=== PATIENT | male | born 1945 | race Caucasian/White ===

== ENCOUNTER 2023-06-26 09:57 | Inpatient (IN) | payer MEDICARE ==
[~2023-06-26] VITALS: Ht 170.2 cm; Wt 101.5 kg
[2023-06-26] VITALS (10 sets, daily range): BP systolic 109–145; BP diastolic 53–72; PULSE 65–74; RESP 16–18; TEMP 97.7–98.4; O2SAT 70–97
[2023-06-26 10:53] LABS: BASOPHILS % (AUTO) 0.5 % (0-1); EOSINOPHILS # (AUTO) 0.1 X10'3 (0-0.9); EOSINOPHILS % (AUTO) 1.4 % (0-6); HEMATOCRIT 39.5 % (42.0-52.0); HEMOGLOBIN 12.8 g/dl (14.0-17.9); LYMPHOCYTES # (AUTO) 0.9 X10'3 (1.1-4.8); LYMPHOCYTES % (AUTO) 12.4 % (21-51); MEAN CORPUSCULAR HEMOGLOBIN 29.9 PG (27.0-31.0); MEAN CORPUSCULAR HGB CONC 32.5 g/dL (33.0-36.5); MEAN CORPUSCULAR VOLUME 91.9 FL (78-98); MEAN PLATELET VOLUME 7.9 FL (7.4-10.4); MONOCYTES # (AUTO) 0.5 X10'3 (0-0.9); MONOCYTES % (AUTO) 6.3 % (2-12); NEUTROPHILS # (AUTO) 5.9 X10'3 (1.8-7.7); NEUTROPHILS % (AUTO) 79.4 % (42-75); PLATELET COUNT 218 X10'3 (140-440); RED BLOOD COUNT 4.29 X10'6 (4.70-6.10); RED CELL DISTRIBUTION WIDTH 14.1 % (11.5-14.5); WHITE BLOOD COUNT 7.4 X10'3 (4.5-11.0)
[2023-06-26 11:17] LABS: ALANINE AMINOTRANSFERASE 39 U/L (12-78); ALBUMIN 3.6 G/DL (3.4-5.0); ALBUMIN/GLOBULIN RATIO 0.8 (1.1-1.5); ALKALINE PHOSPHATASE 87 IU/L (46-116); ANION GAP 13 (8-16); ASPARTATE AMINO TRANSFERASE 56 U/L (10-37); BILIRUBIN,TOTAL 0.5 MG/DL (0.1-1.0); BLOOD UREA NITROGEN 33 MG/DL (7-18); BUN/CREATININE RATIO 14.7 (10.0-20.0); CALCIUM 9.8 MG/DL (8.5-10.1); CHLORIDE 97 MMOL/L (99-107); CREATININE 2.25 MG/DL (0.60-1.10); GLUCOSE 384 MG/DL (70-104); SODIUM 132 MMOL/L (135-145); TOTAL PROTEIN 8.2 G/DL (6.4-8.2); eCRCL 26 ML/MIN; eGFR 28 ML/MIN
[2023-06-26 11:25] LABS: AMYLASE 60 U/L (25-115); PRO BRAIN NATRIURETIC PEPTIDE 529 PG/ML (0-450)
[2023-06-26 11:47] LABS: BILIRUBIN,URINE NEGATIVE (Neg); CLARITY,URINE CLEAR (Clear); COLOR,URINE YELLOW (Yellow); GLUCOSE, URINE >=1000 mg/dl (Neg); KETONES,URINE NEGATIVE (Neg); LEUKOCYTE ESTERASE ,URINE NEGATIVE (Neg); NITRITES, URINE NEGATIVE (Neg); OCCULT BLOOD,URINE TRACE-INTACT (Neg); PROTEIN,URINE TRACE mg/dl (Neg); UROBILINOGEN,URINE 0.2 E.U/dL (0.2-1.0)
[2023-06-26] MEDS ORDERED: aspirin 325mg tablet PO ONE ×2 (11:55→13:45)
[2023-06-26 11:57] LABS: UA COLLECTION TYPE NON-SPECIFIED
[2023-06-26 11:58] LABS: BACTERIA,URINE NONE SEEN /HPF (Neg); MUCUS STRANDS NONE SEEN /LPF (Neg); RBC,URINE 0-2 /HPF (0-2); SQUAMOUS EPITHELIAL CELL,UR FEW /LPF (FEW); WBC,URINE 0-4 /HPF (0-4)
[2023-06-26] MEDS ORDERED: heparin 10,000 units/1 ML INJ IV ONE (13:40)
[2023-06-26] MEDS ORDERED: heparin 10,000 units/1 ML INJ IV PRN (13:40)
[2023-06-26] MEDS ORDERED: heparin 25,000 UNIT/250ml bag 250 ML IV PRN (13:40)
[2023-06-26] MEDS ORDERED: clopidogrel 300mg tablet PO ONE (13:45)
[2023-06-26 14:00] LABS: BASOPHILS % (AUTO) 0.5 % (0-1); EOSINOPHILS # (AUTO) 0.1 X10'3 (0-0.9); HEMATOCRIT 38.9 % (42.0-52.0); HEMOGLOBIN 12.8 g/dl (14.0-17.9); LYMPHOCYTES % (AUTO) 11.8 % (21-51); MEAN CORPUSCULAR HEMOGLOBIN 30.4 PG (27.0-31.0); MEAN CORPUSCULAR VOLUME 92.2 FL (78-98); MEAN PLATELET VOLUME 7.8 FL (7.4-10.4); MONOCYTES # (AUTO) 0.6 X10'3 (0-0.9); MONOCYTES % (AUTO) 7.2 % (2-12); NEUTROPHILS # (AUTO) 6.8 X10'3 (1.8-7.7); NEUTROPHILS % (AUTO) 79.5 % (42-75); PLATELET COUNT 213 X10'3 (140-440); RED BLOOD COUNT 4.21 X10'6 (4.70-6.10); RED CELL DISTRIBUTION WIDTH 14.8 % (11.5-14.5); WHITE BLOOD COUNT 8.5 X10'3 (4.5-11.0)
[2023-06-26] MEDS: normal saline 1000ml 1,000 ML IV SCH ×4 (14:00→23:45)
[2023-06-26 14:13] LABS: APTT 22 SECONDS (22-32); PROTHROMBIN TIME 10.3 SECONDS (9.0-12.0)
[2023-06-26] MEDS ORDERED: fentaNYL/PF 50MCG/1 ML 2ML syringe ONE (14:22)
[2023-06-26] MEDS ORDERED: midazolam 1 mg/ML 2ml injection ONE (14:22)
[2023-06-26] MEDS ORDERED: heparin 1,000unit/ml 10ml vial 0 ML ONE (14:23)
[2023-06-26] MEDS ORDERED: iohexol 350MG/ML 100ml bottle IV ONE (14:23)
[2023-06-26] MEDS ORDERED: LIDOcaine 1% (10mg/ml)w/preservative inj. 20ml MDV ONE (14:23)
[2023-06-26] MEDS ORDERED: iohexol 350 MG/ML 50ML vial IV ONE (14:40)
--- NOTE | 2023-06-26 15:40 | NUR ---
pt arrived from [facility] to room #1328A, recd. report from ANABELL Dalton, pt R comfort beaulieu CDI, pt VSS and pt denies any pain at this time, pt will be going to Tele once we have a bed for pt.
[2023-06-26] MEDS ORDERED: potassium Cl 40MEQ/1/2NS 520ml 520 ML IV PRN (16:05)
[2023-06-26] MEDS ORDERED: acetaminophen 325mg tablet PO PRN (16:05)
[2023-06-26] MEDS ORDERED: magnesium 4gm in 100ml NS 100 ML IV PRN (16:05)
[2023-06-26] MEDS ORDERED: magnesium 2GM in 50ml NS 50 ML IV PRN (16:05)
[2023-06-26] MEDS ORDERED: magnesium Cl slow-release 64mg tablet PO PRN (16:05)
[2023-06-26] MEDS ORDERED: magnesium hydroxide 30ml (MOM) UD suspension PO PRN (16:05)
[2023-06-26] MEDS ORDERED: potassium Cl 20 mEq SR tablet PO PRN ×2 (16:05)
[2023-06-26] MEDS ORDERED: mag hydrox/Alum hydrox/simeth 30ml oral suspension PO PRN (16:05)
[2023-06-26] MEDS ORDERED: ondansetron/PF 4mg/2ml inj IV PRN ×2 (16:05)
[2023-06-26] MEDS ORDERED: HYDROcodone/acetaminophen 5mg/325mg tablet PO PRN (16:10)
[2023-06-26] MEDS ORDERED: glucagon, human recombinant 1mg kit SUBCUT PRN (16:10)
[2023-06-26] MEDS ORDERED: dextrose 50%-water 50ml dispensing syringe IV PRN ×2 (16:10)
[2023-06-26] MEDS ORDERED: MESSAGE TO PHARMACY PO ONE (16:10)
[2023-06-26] MEDS ORDERED: HYDROcodone/acetaminophen 10/325mg tab PO PRN (16:10)
[2023-06-26] MEDS ORDERED: OXAZEpam 15mg capsule PO PRN (16:10)
[2023-06-26] MEDS ORDERED: DEXTROSE 15 GM of carb/4 tabs (each vial/BOTTLE has 4 tablets) PO PRN ×2 (16:10)
[2023-06-26] MEDS ORDERED: proCHLORperazine 10 MG/2 ml inj IV PRN (16:10)
[2023-06-26] MEDS: clopidogrel 75mg tablet PO SCH (16:28)
--- NOTE | 2023-06-26 16:30 | NUR ---
Problems reprioritized. Patient report given, questions answered & plan of care reviewed with ANABELL Sim, I will be taking pt to room 3017Q.
[2023-06-26 16:38] LABS: HEMOGLOBIN A1C 11.4 % (4.5-6.2)
--- NOTE | 2023-06-26 16:40 | NUR ---
pt in room #10981K, VSS and pt denies any pain at this time, pt's R groin dsg CDI, all pt belongings transferred with pt. ANABELL Sim and ANABELL Fagan at pt's bedside.
[2023-06-26] MEDS ORDERED: LISI1TAB51 PO (17:18)
[2023-06-26] MEDS ORDERED: CARV6.2553 PO (17:18)
[2023-06-26] MEDS ORDERED: ATOR40TA72 PO (17:18)
[2023-06-26] MEDS ORDERED: GLIP10TA11 PO (17:18)
[2023-06-26] MEDS ORDERED: LEVO25TA7 PO (17:18)
[2023-06-26] MEDS ORDERED: ALLO100T PO (17:18)
--- NOTE | 2023-06-26 18:53 | NUR ---
Problems reprioritized. Patient report given, questions answered & plan of care reviewed with hSeryl HUNG, patient stable at transfer of care.
[2023-06-26] MEDS: insulin Lispro (HumaLOG) vial - multi-dose SQ SCH ×2 (19:23→21:23)
[2023-06-26] MEDS: docusate sod 100mg capsule PO SCH (19:29)
[2023-06-26] MEDS: K and/or MAG REPLACEMENT MC SCH (19:56)
[2023-06-26] MEDS: insulin glargine (Lantus) pen - multi-dose SQ SCH (21:20)
[2023-06-27 02:00] VITALS: BP 122/60; PULSE 80; RESP 18; TEMP 98.4; O2SAT 95
[2023-06-27 06:00] VITALS: BP 133/71; PULSE 79; RESP 18; TEMP 98.4; O2SAT 94
--- NOTE | 2023-06-27 06:30 | NUR ---
Patient in room PCU 3013. I have received report from Sheryl HUNG and had the opportunity to ask questions and assume patient care.
--- NOTE | 2023-06-27 06:43 | NUR ---
Patient report given, questions answered & plan of care reviewed with ANABELL Saucedo
[2023-06-27 06:55] LABS: BASOPHILS % (AUTO) 0.7 % (0-1); EOSINOPHILS # (AUTO) 0.1 X10'3 (0-0.9); EOSINOPHILS % (AUTO) 1.7 % (0-6); HEMATOCRIT 34.8 % (42.0-52.0); HEMOGLOBIN 11.8 g/dl (14.0-17.9); LYMPHOCYTES # (AUTO) 0.8 X10'3 (1.1-4.8); LYMPHOCYTES % (AUTO) 17.1 % (21-51); MEAN CORPUSCULAR HGB CONC 33.8 g/dL (33.0-36.5); MEAN CORPUSCULAR VOLUME 91.6 FL (78-98); MONOCYTES # (AUTO) 0.4 X10'3 (0-0.9); MONOCYTES % (AUTO) 9.1 % (2-12); NEUTROPHILS # (AUTO) 3.3 X10'3 (1.8-7.7); NEUTROPHILS % (AUTO) 71.4 % (42-75); PLATELET COUNT 175 X10'3 (140-440); RED CELL DISTRIBUTION WIDTH 14.5 % (11.5-14.5); WHITE BLOOD COUNT 4.6 X10'3 (4.5-11.0)
[2023-06-27 07:15] LABS: ANION GAP 9 (8-16); BLOOD UREA NITROGEN 23 MG/DL (7-18); BUN/CREATININE RATIO 14.6 (10.0-20.0); CALCIUM 9.3 MG/DL (8.5-10.1); CHLORIDE 104 MMOL/L (99-107); CREATININE 1.58 MG/DL (0.60-1.10); GLUCOSE 228 MG/DL (70-104); MAGNESIUM 1.8 MG/DL (1.5-2.4); POTASSIUM 3.7 MMOL/L (3.5-5.1); SODIUM 136 MMOL/L (135-145); TOTAL CARBON DIOXIDE 23.2 MMOL/L (24-32); eCRCL 36 ML/MIN; eGFR 43 ML/MIN
[2023-06-27] MEDS: K and/or MAG REPLACEMENT MC SCH ×2 (08:00→19:54)
[2023-06-27] MEDS ORDERED: clopidogrel 75mg tablet PO SCH (08:00)
[2023-06-27] MEDS: docusate sod 100mg capsule PO SCH ×2 (09:13→20:00)
[2023-06-27] MEDS: aspirin 81mg, enteric-coated 1 TAB TABLET.DR PO SCH (09:13)
[2023-06-27] MEDS: clopidogrel 75mg tablet PO SCH (09:13)
[2023-06-27] MEDS: insulin Lispro (HumaLOG) vial - multi-dose SQ SCH ×4 (09:25→21:56)
[2023-06-27] MEDS: normal saline 1000ml 1,000 ML IV SCH ×2 (09:45→22:05)
--- NOTE | 2023-06-27 14:19 | NUR ---
PER TELEPHONE CONVERSATION WITH DR LYNCH IT IS OK TO DC PATIENT TO HOME
--- NOTE | 2023-06-27 14:24 | NUR ---
Page Sent TO DR CUETO promotional table spacer PAGER ID: [phone] MESSAGE: [id number] RIVERO. PER TELEPHONE CONVERSATION WITH DR LYNCH PATIENT IS OK TO DISCHARGE HOME. DR CASTAÑEDA DID NOT THINK AFTAB WAS SURGICAL CANDIDATE. [email or web address]@[phone] (154 character message out of a maximum of 240)
[2023-06-27 15:00] VITALS: BP 113/58; PULSE 85; RESP 16; TEMP 98.3; O2SAT 95
--- NOTE | 2023-06-27 16:32 | NUR ---
PER TELEPHONE CONVERSATION WITH DR LYNCH HE IS NOT GOING TO REPEAT PCI AND STENT AT THIS TIME.
--- NOTE | 2023-06-27 16:32 | NUR ---
Page Sent promotional table spacer PAGER ID: [phone] MESSAGE: [id number] MAT. PER DR CASTAÑEDA PT IS NOT A SURGICAL CANDIDATE. HE RECOMMENDS PCI. DR LYNCH IS NOT GOING TO DO THAT AND HE WOULD LIKE US TO SEND HIM BACK TO WHERE HE CAME FROM. KIMBER @[phone] ([phone] character message out of a maximum of 240)
--- NOTE | 2023-06-27 17:42 | NUR ---
Diabetes consult: Pt presents with an A1c of 11.4% this admit. Pt and Pt's seen at bedside for written/verbal diabetes nutrition education. Pt states he sees his primary doctor for diabetes management every 4 months and takes his medication as prescribes however he has been on the road traveling with his for the past few months. Pt states his prior A1c was 7.4% which was appropriate for his age and suspects it has gone up due to traveling and eating out for most meals. Pt and were eager to discharge and go back to [place] where he will soon see his PCP. RD contact also provided and encouraged pt/SO to reach out for any nutrition questions or concerns. Addendum: 06/27/23 at [address] Amended: Links added.
[2023-06-27 20:00] VITALS: BP 102/45; PULSE 72; RESP 23; O2SAT 94
[2023-06-27] MEDS: heparin, porcine 5000 units/ml vial SQ SCH (20:00)
[2023-06-27] MEDS: carvedilol 6.25mg tablet PO SCH (20:00)
[2023-06-27 21:00] VITALS: BP 100/48
[2023-06-27 22:00] VITALS: BP 98/45; PULSE 65; RESP 20; TEMP 97.6; O2SAT 94
[2023-06-27] MEDS: insulin glargine (Lantus) pen - multi-dose SQ SCH (22:00)
[2023-06-28] VITALS (13 sets, daily range): BP systolic 111–151; BP diastolic 57–73; PULSE 68–91; RESP 13–22; TEMP 97–98.9; O2SAT 95–100
[2023-06-28] MEDS: normal saline 1000ml 1,000 ML IV SCH ×6 (00:10→23:25)
--- NOTE | 2023-06-28 06:45 | NUR ---
Patient report given, questions answered & plan of care reviewed with ANABELL Saucedo
[2023-06-28 06:46] LABS: BASOPHILS % (AUTO) 0.6 % (0-1); EOSINOPHILS # (AUTO) 0.1 X10'3 (0-0.9); EOSINOPHILS % (AUTO) 1.6 % (0-6); HEMATOCRIT 34.4 % (42.0-52.0); HEMOGLOBIN 11.4 g/dl (14.0-17.9); LYMPHOCYTES # (AUTO) 0.9 X10'3 (1.1-4.8); LYMPHOCYTES % (AUTO) 22.7 % (21-51); MEAN CORPUSCULAR HEMOGLOBIN 30.5 PG (27.0-31.0); MEAN CORPUSCULAR VOLUME 92.5 FL (78-98); MONOCYTES # (AUTO) 0.4 X10'3 (0-0.9); MONOCYTES % (AUTO) 10.7 % (2-12); NEUTROPHILS # (AUTO) 2.6 X10'3 (1.8-7.7); NEUTROPHILS % (AUTO) 64.4 % (42-75); PLATELET COUNT 160 X10'3 (140-440); RED BLOOD COUNT 3.72 X10'6 (4.70-6.10); RED CELL DISTRIBUTION WIDTH 14.5 % (11.5-14.5); WHITE BLOOD COUNT 4.1 X10'3 (4.5-11.0)
[2023-06-28 07:03] LABS: MAGNESIUM 2.1 MG/DL (1.5-2.4)
[2023-06-28 07:57] LABS: ALBUMIN 2.9 G/DL (3.4-5.0); ANION GAP 10 (8-16); BLOOD UREA NITROGEN 29 MG/DL (7-18); BUN/CREATININE RATIO 16.7 (10.0-20.0); CHLORIDE 107 MMOL/L (99-107); CREATININE 1.74 MG/DL (0.60-1.10); GLUCOSE 205 MG/DL (70-104); POTASSIUM 3.8 MMOL/L (3.5-5.1); SODIUM 139 MMOL/L (135-145); TOTAL CARBON DIOXIDE 21.6 MMOL/L (24-32); eCRCL 33 ML/MIN; eGFR 38 ML/MIN
[2023-06-28] MEDS: docusate sod 100mg capsule PO SCH ×2 (08:00→21:12)
[2023-06-28] MEDS: heparin, porcine 5000 units/ml vial SQ SCH ×2 (08:00→21:13)
[2023-06-28] MEDS: clopidogrel 75mg tablet PO SCH (08:00)
[2023-06-28] MEDS: carvedilol 6.25mg tablet PO SCH ×2 (08:00→21:12)
[2023-06-28] MEDS: K and/or MAG REPLACEMENT MC SCH ×2 (08:00→20:00)
[2023-06-28] MEDS: aspirin 81mg, enteric-coated 1 TAB TABLET.DR PO SCH (08:00)
[2023-06-28] MEDS: atorvastatin 20mg tablet PO SCH (08:00)
[2023-06-28] MEDS ORDERED: LIDOcaine 1% (10mg/ml)w/preservative inj. 20ml MDV ONE (10:28)
[2023-06-28] MEDS ORDERED: heparin 1,000unit/ml 10ml vial 10 ML ONE ×2 (10:28→11:55)
[2023-06-28] MEDS ORDERED: midazolam 1 mg/ML 2ml injection ONE ×2 (10:28→11:43)
[2023-06-28] MEDS ORDERED: fentaNYL/PF 50MCG/1 ML 2ML syringe ONE (10:28)
[2023-06-28] MEDS ORDERED: iohexol 350MG/ML 100ml bottle IV ONE (10:28)
[2023-06-28] MEDS ORDERED: iohexol 350 MG/ML 50ML vial IV ONE (12:32)
[2023-06-28] MEDS ORDERED: ticagrelor 90mg tablet ONE (12:51)
[2023-06-28] MEDS ORDERED: proCHLORperazine 10 MG/2 ml inj IV PRN (13:25)
[2023-06-28] MEDS ORDERED: HYDROcodone/acetaminophen 10/325mg tab PO PRN (13:25)
[2023-06-28] MEDS ORDERED: aspirin 81mg tab.chew PO ONE (13:25)
[2023-06-28] MEDS ORDERED: HYDROcodone/acetaminophen 5mg/325mg tablet PO PRN (13:25)
[2023-06-28] MEDS ORDERED: ondansetron/PF 4mg/2ml inj IV PRN (13:25)
[2023-06-28] MEDS ORDERED: albuterol 2.5 MG/3 ML nebule NEB ONE (13:30)
[2023-06-28] MEDS: insulin Lispro (HumaLOG) vial - multi-dose SQ SCH ×2 (19:25→23:06)
[2023-06-28] MEDS: insulin glargine (Lantus) pen - multi-dose SQ SCH (21:00)
[2023-06-29 02:00] VITALS: BP 152/83; PULSE 82; RESP 16; TEMP 97.8; O2SAT 96
[2023-06-29 06:00] VITALS: BP 111/69; PULSE 78; RESP 18; TEMP 98.4; O2SAT 96
[2023-06-29 06:33] LABS: BASOPHILS % (AUTO) 0.4 % (0-1); EOSINOPHILS # (AUTO) 0.1 X10'3 (0-0.9); EOSINOPHILS % (AUTO) 2.1 % (0-6); HEMOGLOBIN 11.2 g/dl (14.0-17.9); LYMPHOCYTES # (AUTO) 0.7 X10'3 (1.1-4.8); LYMPHOCYTES % (AUTO) 13.6 % (21-51); MEAN CORPUSCULAR HEMOGLOBIN 30.4 PG (27.0-31.0); MEAN CORPUSCULAR HGB CONC 32.9 g/dL (33.0-36.5); MEAN CORPUSCULAR VOLUME 92.4 FL (78-98); MEAN PLATELET VOLUME 7.5 FL (7.4-10.4); MONOCYTES # (AUTO) 0.4 X10'3 (0-0.9); MONOCYTES % (AUTO) 8.7 % (2-12); NEUTROPHILS # (AUTO) 3.8 X10'3 (1.8-7.7); NEUTROPHILS % (AUTO) 75.2 % (42-75); PLATELET COUNT 172 X10'3 (140-440); RED BLOOD COUNT 3.68 X10'6 (4.70-6.10); RED CELL DISTRIBUTION WIDTH 14.5 % (11.5-14.5); WHITE BLOOD COUNT 5.1 X10'3 (4.5-11.0)
[2023-06-29 06:43] LABS: ALBUMIN 2.9 G/DL (3.4-5.0); ANION GAP 6 (8-16); BLOOD UREA NITROGEN 23 MG/DL (7-18); BUN/CREATININE RATIO 16.1 (10.0-20.0); CALCIUM 9.5 MG/DL (8.5-10.1); CHLORIDE 106 MMOL/L (99-107); CREATININE 1.43 MG/DL (0.60-1.10); GLUCOSE 241 MG/DL (70-104); SODIUM 135 MMOL/L (135-145); TOTAL CARBON DIOXIDE 22.9 MMOL/L (24-32); eCRCL 40 ML/MIN; eGFR 48 ML/MIN
--- NOTE | 2023-06-29 07:00 | NUR ---
This RN has reviewed and agrees w/the GRINDER OPERATOR's physical assessment of this pt.
[2023-06-29 07:22] LABS: HIV ANTIBODY 1&2 RAPID NON-REACTIVE (Neg)
[2023-06-29] MEDS: K and/or MAG REPLACEMENT MC SCH (08:00)
[2023-06-29] MEDS: docusate sod 100mg capsule PO SCH (08:00)
[2023-06-29] MEDS: heparin, porcine 5000 units/ml vial SQ SCH (08:00)
[2023-06-29] MEDS: atorvastatin 20mg tablet PO SCH (08:12)
[2023-06-29] MEDS: carvedilol 6.25mg tablet PO SCH (08:12)
[2023-06-29] MEDS: aspirin 81mg, enteric-coated 1 TAB TABLET.DR PO SCH (08:12)
[2023-06-29] MEDS: clopidogrel 75mg tablet PO SCH (08:12)
[2023-06-29] MEDS: insulin Lispro (HumaLOG) vial - multi-dose SQ SCH (09:37)
[2023-06-29] MEDS ORDERED: CLOP75TA34 PO (09:41)
[2023-06-29 11:00] VITALS: BP 143/72; PULSE 80; RESP 14; TEMP 97.6; O2SAT 97
[2023-06-29] MEDS ORDERED: CARV6.2553 PO (12:00)
--- NOTE | 2023-06-29 13:00 | NUR ---
Discharge to home: at bedside for discharge instructions. Brilinta and ASA are filled and brought to the hospital today prior to discharge. All instructions are reviewed and discussed in detail with spouse and patient. Pt. has hearing aids in place but has limited hearing even with the aids. is responsible for follow through and compliance. She presents as a detail oriented person. Sable vital signs and steady ambulation. Groin is without complication bleeding or hematoma, fresh dressing is placed and instructions to remove that dressing later today in the shower are understood. Family is staying locally, planning to recover prior to traveling home to [place]. Plavix Rx for next month is sent to home pharmacy in [place].
[2023-07-02 10:57] LABS: HBSAG SCREEN Negative (Negative); HEPATITIS C VIRUS ANTIBODY Non Reactive (Non Reactive)
== END 2023-06-29 13:23 | disposition home or self-care (01) | DRG 321 ==
LOC: ER 09:58 → PCU 3S 16:16
PROVIDERS: ADMIT Internal Medicine; ATTEND Internal Medicine
PROC: 4A023N7 Measurement of Cardiac Sampling and Pressure, Left Heart, Percutaneous Approach (ICD-10-PCS; 2023-06-26)
PROC: B2111ZZ Fluoroscopy of Multiple Coronary Arteries using Low Osmolar Contrast (ICD-10-PCS; 2023-06-26)
PROC: B2151ZZ Fluoroscopy of Left Heart using Low Osmolar Contrast (ICD-10-PCS; 2023-06-26)
PROC: B41F1ZZ Fluoroscopy of Right Lower Extremity Arteries using Low Osmolar Contrast (ICD-10-PCS; 2023-06-26)
PROC: 0270346 Dilation of Coronary Artery, One Artery, Bifurcation, with Drug-eluting Intraluminal Device, Percutaneous Approach (ICD-10-PCS; principal; 2023-06-28)
PROC: 027136Z Dilation of Coronary Artery, Two Arteries with Three Drug-eluting Intraluminal Devices, Percutaneous Approach (ICD-10-PCS; 2023-06-28)
PROC: 4A023N7 Measurement of Cardiac Sampling and Pressure, Left Heart, Percutaneous Approach (ICD-10-PCS; 2023-06-28)
PROC: B2101ZZ Fluoroscopy of Single Coronary Artery using Low Osmolar Contrast (ICD-10-PCS; 2023-06-28)
DX: T82.897A Other specified complication of cardiac prosthetic devices, implants and grafts, initial encounter (principal); I21.4 Non-ST elevation (NSTEMI) myocardial infarction; N17.0 Acute kidney failure with tubular necrosis; N18.4 Chronic kidney disease, stage 4 (severe); F10.10 Alcohol abuse, uncomplicated; E66.9 Obesity, unspecified; I12.9 Hypertensive chronic kidney disease with stage 1 through stage 4 chronic kidney disease, or unspecified chronic kidney disease; I25.10 Atherosclerotic heart disease of native coronary artery without angina pectoris; E11.22 Type 2 diabetes mellitus with diabetic chronic kidney disease; Y83.8 Other surgical procedures as the cause of abnormal reaction of the patient, or of later complication, without mention of misadventure at the time of the procedure; E66.01 Morbid (severe) obesity due to excess calories; Z68.38 Body mass index [BMI] 38.0-38.9, adult; Z79.84 Long term (current) use of oral hypoglycemic drugs; Z79.899 Other long term (current) drug therapy; Z95.5 Presence of coronary angioplasty implant and graft; Z79.82 Long term (current) use of aspirin; Z83.3 Family history of diabetes mellitus; Y92.89 Other specified places as the place of occurrence of the external cause
CPT/HCPCS: 93458; 96374; 99285; C9600; C9601; 36415; 71045; 76770; 80048; 80053; 81001; 82150; 82948; 83036; 83735; 83880; 84484; 85025; 85610; 85730; 86703; 86803; 87081; 87340; 87522; 93005; 99152; 99153; A6258; A6449; C1725; C1751; C1760; C1769; C1874; G0378; J1644; J1815; J2250; J3010; J3490; J7030; Q9967